=== PATIENT | female | born 1940 | race Caucasian/White ===

== ENCOUNTER 2016-10-10 20:43 | Inpatient (IN) | payer OTHER, BC ==
[~2016-10-10] VITALS: Ht 152.4 cm; Wt 60.9 kg
[~2016-10-10 20:43] MED LIST: AMLODIPINE BESYL5 MG PO; AMMONIUM LACTA224 GM TP; AMOX TR-K CLV1 EAC4 PO; ASPIRIN81 M2 PO; BACLOFEN10 MG PO; BACTRIM,SEPT1 TABLET PO; CEFTIN250 MG PO; CITALOPRAM HBR10 MG PO; CLONIDINE HCL0.1 MG PO; CLONIDINE1 EAC2 TD; GABAPENTIN100 MG PO; GLIMEPIRIDE4 MG PO; LIORESAL10 MG PO; LISINOPRIL20 MG PO; LOPRESSOR100 M1 PO; LORAZEPAM1 MG PO; OMEPRAZOLE20 MG PO; OXYCODONE-APAP1 EAC6 PO; PROMETHAZINE HC25 M1 PO; SIMVASTATIN20 MG PO; TEMOVATE 0.05%15 G1 TP; ZOLPIDEM TARTRAT5 MG PO; amlodipine PO; citalopram PO; clonidine PO; gabapentin PO; methocarbamol PO; robaxin PO
[2016-10-10 21:07] LABS: HEMATOCRIT 36.5 % (36.0-46.0); MCH 27.8 PG (29.0-34.0); MCHC 32.9 G/DL (30.0-36.0); MCV 84.5 FL (83-99); MEAN PLAT.VOLUME 9.5 uM^3 (9.5-12.4); PLATELET COUNT 282 K/uL (156-360); RED BLOOD COUNT 4.32 M/uL (3.80-5.20); WHITE BLOOD COUNT 6.6 K/uL (4.1-10.2)
[2016-10-10 21:18] LABS: CHLORIDE 105 mEq/L (99-109); POTASSIUM 3.7 mEq/L (3.7-5.4); SODIUM 143 mEq/L (136-147)
[2016-10-10 21:21] LABS: GLUCOSE 106 mg/dL (70-99)
[2016-10-10 21:22] LABS: ANION GAP 12 MEQ/L (2-14)
[2016-10-10 21:23] LABS: TOTAL BILIRUBIN 0.7 mg/dL (0.0-1.0)
[2016-10-10 21:24] LABS: ALKALINE PHOSPHATASE 191 IU/L (3-129)
[2016-10-10 21:25] LABS: GFR ESTIMATE (CALCULATED) > 59 mL/min/
[2016-10-10 21:26] LABS: DIRECT BILIRUBIN 0.2 mg/dL (0.0-0.3); UREA NITROGEN (BUN) 18 mg/dL (9-23)
[2016-10-10 21:28] LABS: LIPASE 12 U/L (1.0-51.0)
[2016-10-10 21:31] LABS: BILIRUBIN NEGATIVE; BLOOD NEGATIVE; COLOR YELLOW ((YELLOW)); GLUCOSE (STRIP) NEGATIVE; KETONES NEGATIVE; LEUKOCYTES NEGATIVE; NITRITE NEGATIVE; PH, URINE 6.5 (5-8); PROTEIN (STRIP) NEGATIVE; SPECIFIC GRAVITY 1.019 (1.000-1.030); UROBILINOGEN 0.2 MG/DL (0.2-1.0)
[2016-10-10 21:32] LABS: ADD MIUA? NO; UCUL ADDED? NO
[2016-10-10 22:57] LABS: TROP-I INTERPRETATION NEGATIVE; TROPONIN-I < 0.01 ng/mL (0.0-0.30)
[2016-10-10] MEDS ORDERED: BACLOFEN10 MG PO (22:59)
[2016-10-10] MEDS ORDERED: LO-DOSE ASPIRIN81 M2 PO (23:01)
[2016-10-10] MEDS ORDERED: FUROSEMIDE20 MG PO (23:03)
[2016-10-11 07:37] LABS: DIRECT BILIRUBIN 0.2 mg/dL (0.0-0.3); TROP-I INTERPRETATION NEGATIVE; TROPONIN-I < 0.01 ng/mL (0.0-0.30)
[2016-10-11 07:53] LABS: ALKALINE PHOSPHATASE 174 IU/L (3-129)
[2016-10-11 08:01] LABS: TOTAL BILIRUBIN 0.4 mg/dL (0.0-1.0)
[2016-10-11 13:31] LABS: TROP-I INTERPRETATION NEGATIVE; TROPONIN-I < 0.01 ng/mL (0.0-0.30)
[2016-10-11 17:03] VITALS: BP 145/67
[2016-10-11 19:30] VITALS: BP 183/76
[2016-10-11 23:42] VITALS: BP 130/66
[2016-10-12 05:23] VITALS: BP 131/62
[2016-10-12 06:47] LABS: HEMATOCRIT 30.4 % (36.0-46.0); MCH 27.9 PG (29.0-34.0); MCHC 31.6 G/DL (30.0-36.0); MCV 88.4 FL (83-99); MEAN PLAT.VOLUME 10.3 uM^3 (9.5-12.4); PLATELET COUNT 255 K/uL (156-360); RBC DIS.WIDTH-CV 16.8 % (11.8-14.6); RBC DIS.WIDTH-SD 54.6 % (39-53); RED BLOOD COUNT 3.44 M/uL (3.80-5.20); WHITE BLOOD COUNT 4.4 K/uL (4.1-10.2)
[2016-10-12 07:04] LABS: ANION GAP 10 MEQ/L (2-14); CHLORIDE 110 MEQ/L (99-109); GFR ESTIMATE (CALCULATED) > 59 mL/min/; GLUCOSE 83 mg/dL (70-99); POTASSIUM 3.5 MEQ/L (3.7-5.4); SAMPLE HEMOLYSIS CHECK 0; SAMPLE ICTERIC CHECK 0; SAMPLE LIPEMIA CHECK 0; SODIUM 147 MEQ/L (136-147); UREA NITROGEN (BUN) 13 mg/dL (9-23)
[2016-10-12 07:59] VITALS: BP 144/60
[2016-10-12 11:21] VITALS: BP 105/58
[2016-10-12 11:22] LABS: POINT-OF-CARE METER ID UU14174225
[2016-10-12 15:34] VITALS: BP 116/57
[2016-10-12 19:22] VITALS: BP 169/72
[2016-10-12 21:46] LABS: POINT-OF-CARE METER ID UU14174225
[2016-10-12 23:45] VITALS: BP 165/74
[2016-10-13 07:50] VITALS: BP 138/64
[2016-10-13 11:14] VITALS: BP 135/63
[2016-10-13] MEDS ORDERED: CARVEDILOL6.25 MG PO (14:15)
== END 2016-10-13 15:14 | disposition home or self-care (01) | DRG 178 ==
LOC: EME → EDBD 20:43 → EDOF 10-11 01:20 → 5SOUTH 10-11 01:20
PROVIDERS: Hospitalist; Internal Medicine
DX: J69.0 Pneumonitis due to inhalation of food and vomit (principal); I67.4 Hypertensive encephalopathy; F33.9 Major depressive disorder, recurrent, unspecified; R65.10 Systemic inflammatory response syndrome (SIRS) of non-infectious origin without acute organ dysfunction; R78.81 Bacteremia; I10 Essential (primary) hypertension; E11.9 Type 2 diabetes mellitus without complications; R41.82 Altered mental status, unspecified; Z88.2 Allergy status to sulfonamides; R13.10 Dysphagia, unspecified; E78.5 Hyperlipidemia, unspecified; R53.1 Weakness
CPT/HCPCS: 70450; 71010; 72100; 74176; 80048; 80076; 81003; 82948; 83605; 83690; 84484; 85027; 87040; 92610 GN; 93005; 94799; 99281; 99285; J0360; J0696; J1626; J1644; J1815; J2405; J3370; J7030; J7050